=== PATIENT | female | born 1965 | race Caucasian/White ===

== ENCOUNTER 2018-01-22 20:30 | Emergency (ER) | payer MEDICAID ==
[~2018-01-22] VITALS: Ht 170.2 cm; Wt 107.4 kg
[~2018-01-22 20:30] MED LIST: ASPI325T17 PO; HYDR-3237 PO; MULT-478 PO
[2018-01-22] MEDS ORDERED: HYDROcodone/APAP 5/325 TABLET ONE ×2 (20:48→21:24)
[2018-01-22] MEDS ORDERED: HYDROcodone/APAP 5/325 TABLET PO ONE ×2 (21:00→21:30)
[2018-01-22] MEDS ORDERED: IBUPROFEN 200 MG TABLET ONE (21:24)
[2018-01-22] MEDS ORDERED: IBUPROFEN 200 MG TABLET PO ONE (21:30)
[2018-01-22] MEDS ORDERED: SODIUM CHLORIDE FLUSH 10ML SYR IVF ONE (22:00)
[2018-01-22] MEDS ORDERED: PROPOFOL 10 MG/ML, 20ML IVPush ONE (22:00)
[2018-01-22] MEDS ORDERED: LIDOCAINE-MPF 1%, 2ML ONE (22:03)
[2018-01-22] MEDS ORDERED: LIDOCAINE-MPF 2% ,5ML ONE (22:04)
[2018-01-22] MEDS ORDERED: PROPOFOL 10 MG/ML, 20ML ONE (22:05)
[2018-01-23 00:48] VITALS: BP 131/90
== END 2018-01-23 00:53 | disposition home or self-care (01) ==
LOC: ED 23:59
DX: S52.572A Other intraarticular fracture of lower end of left radius, initial encounter for closed fracture (principal); S52.615A Nondisplaced fracture of left ulna styloid process, initial encounter for closed fracture; W01.0XXA Fall on same level from slipping, tripping and stumbling without subsequent striking against object, initial encounter; Y93.01 Activity, walking, marching and hiking; Y92.009 Unspecified place in unspecified non-institutional (private) residence as the place of occurrence of the external cause; Y99.8 Other external cause status
CPT/HCPCS: 25605; 73100; 73110; 73200; 73630; 99152; 99285; J2704